=== PATIENT | female | born 1950 | race Caucasian/White ===

== ENCOUNTER 2025-06-08 09:46 | Outpatient (CLI) | payer MEDICARE, OTHER | END 2025-06-08 09:47 | disposition home or self-care (01) | LOC: CSHULT 09:46 | PROVIDERS: ATTEND Specialist | DX: E04.1 Nontoxic single thyroid nodule (principal) | CPT/HCPCS: 76536 ==

== ENCOUNTER → 2025-06-21 | Day surgery (SDC) | payer MEDICARE, OTHER ==
[~2025-06-21] MED LIST: Sodium Bicarbonate 2.5 MEQ/5 ML SDV ONE
[2025-06-21 12:27] VITALS: BP 172/79; TEMP 98.3
== END ==
LOC: CSHULT 11:41
PROVIDERS: ATTEND Specialist
PROC: 0G9H3ZX Drainage of Right Thyroid Gland Lobe, Percutaneous Approach, Diagnostic (ICD-10-PCS; principal; 2025-06-21)
DX: E04.1 Nontoxic single thyroid nodule (principal)
CPT/HCPCS: 10005; 88173